=== PATIENT | female | born 1990 | race Caucasian/White ===

== ENCOUNTER 2019-09-08 14:21 | Observation (INO) | payer BC, SELFPAY ==
--- NOTE | 2019-09-08 14:21 | OBADM ---
This patient, Rand Hernandez, admitted to the OB room [facility] for observation. Patient/family oriented to hospital policies and general routines including ID bracelet, bed and alarms, visiting hours, pain management, procedures, bathroom and other care routines, personal items, smoking policy, room service/diet, and visiting hours. Patient/Family are encouraged to report perceived risks to care and to ask questions if they do not understand what they are told or what they should do.
[2019-09-08 15:03] VITALS: BP 120/63; PULSE 85
[2019-09-08 15:15] VITALS: BMI 28.5
[2019-09-08] MEDS: LACTATED RINGERS 1,000 ML 999 ML IV CONT (15:25)
[2019-09-08 15:56] LABS: Add Urine Microscopic? YES; Appearance Urine Clear (Clear); Bacteria Urine Trace /hpf; Bilirubin Urine Negative (Negative); Blood Urine Negative (Negative); Color Urine Yellow (Yellow); Glucose Urine UA Negative (Negative); Ketones Urine Negative (Negative); Leukocyte Esterase Ur Trace LEU/UL (NEGATIVE); Mucus Urine Moderate /lpf; Nitrate Urine Negative (Negative); Protein Urine 1+ mg/dL (Negative); Specific Grav Ur 1.018 (1.001-1.035); Squamous Epithelial Cell Urine Many /hpf (Few)
--- NOTE | 2019-09-10 09:13 | PM.OBTRLD ---
OB - Triage/Final Diagnosis Evaluation Laboratory results: Laboratory Tests 09/08/19 15:33 Urine Color Yellow Urine Appearance Clear Urine pH 6.0 Ur Specific [place] 1.018 Urine Protein 1+ H Urine Glucose (UA) Negative Urine Ketones Negative Ur Blood (Man) Negative Urine Nitrate Negative Urine Bilirubin Negative Urine Urobilinogen 2.0 H Ur Leukocyte Esterase Trace H Urine RBC 3-5 H Urine WBC 4-6 H Ur Squamous Epith Cells Many H Urine Bacteria Trace Urine Mucus Moderate H Final Diagnosis (1) Abdominal pain affecting : Code(s): O26.899 - Other specified related conditions, unspecified trimester; R10.9 - Unspecified abdominal pain Status: Acute Plan: Pt is a prev c/s x2 who presented with abdominal pain x3 days. She was found to be marv q3-5min, cervix was closed. FHTs were reassuring. Urine sample was reji in color and pt endorsed decreased fluid intake. After IV fluid hydration, contractions spaced out significantly and she denied any abdominal pain or discomfort.
== END 2019-09-08 17:55 | disposition home or self-care (01) ==
PROVIDERS: Admitting Provider Obstetrics & Gynecology; Visit Provider Obstetrics & Gynecology
DX: O26.893 Other specified pregnancy related conditions, third trimester (principal); R10.9 Unspecified abdominal pain; R82.998 Other abnormal findings in urine; O34.219 Maternal care for unspecified type scar from previous cesarean delivery; Z3A.35 35 weeks gestation of pregnancy
CPT/HCPCS: 81001; 87086; 96360; G0378; G0379; J7120

== ENCOUNTER 2020-02-25 13:55 | Emergency (ER) | payer BC, SELFPAY ==
--- NOTE | ~2020-02-25 | XR_ITS ---
EXAMINATION: XR hip BI 2V w AP pelvis DATE: 02/25/2020 15:06 INDICATION: Bilateral hip pain TECHNIQUE: AP view of the pelvis and two views of each hip were obtained. COMPARISON: None. FINDINGS: Bone alignment is normal. There is no fracture. The soft tissues are unremarkable. IMPRESSION: 1. No acute osseous abnormality. Reviewed, dictated and finalized at location A.
[2020-02-25 13:55] VITALS: BP 119/85; PULSE 92; RESP 17; TEMP 37; O2SAT 100
[2020-02-25 14:48] LABS: Add Urine Microscopic? YES; Appearance Urine Cloudy (Clear); Bacteria Urine Trace /hpf; Bilirubin Urine Negative (Negative); Blood Urine Negative (Negative); Color Urine Yellow (Yellow); Glucose Urine UA Negative (Negative); Ketones Urine Negative (Negative); Leukocyte Esterase Ur 1+ LEU/UL (Negative); Mucus Urine Moderate /lpf; Nitrate Urine Negative (Negative); Protein Urine 1+ mg/dL (Negative); Squamous Epithelial Cell Urine Many /hpf (Few)
[2020-02-25 14:53] LABS: Specific Grav Ur 1.034 (1.001-1.035)
[2020-02-25 15:02] LABS: Amphetamine Screen Urine Negative (Negative); Barbiturate Screen Urine Negative (Negative); Benzodiazepines Screen Urine Negative (Negative); Cannabinoid Screen Urine Positive (Negative); Cocaine Screen Urine Negative (Negative); Methadone Screen Urine Negative (Negative); Opiate Screen Urine Negative (Negative); Phencyclidine Screen Urine Negative (Negative)
[2020-02-25] MEDS: methylPREDNISolone SOD SUCC 125 MG VIAL 80 MG IM (15:28)
[2020-02-25] MEDS: ORPHENADRINE CITRATE 100 MG TABLET.ER PO (15:35)
--- NOTE | 2020-02-25 15:39 | ED.BACK ---
HPI - Back Pain/Injury General Chief Complaint: Back Pain/Injury Stated Complaint: HIP PAIN Time Seen by Provider: 02/25/20 14:07 Source: patient Mode of arrival: ambulatory Limitations: no limitations History of Present Illness HPI Narrative: Patient presents with chief complaint of pain to her left buttock that feels as if her hip is grinding when she walks. Patient reports there is some radiation down her left leg at times. Patient states that she does not think that she has sciatica because she feels that the the discomfort is in her hip. Patient states she does not have a primary care at this time. Patient states that her symptoms have progressed since having her son in September. Patient states she is currently being treated with Macrobid for urinary tract infection. Patient denies any direct trauma or injury. Patient denies fever, chills, nausea, vomiting, diarrhea or any other symptoms. Patient reports an allergy to aspirin. Related Data Allergies Allergy/AdvReac Type Severity Reaction Status Date / Time aspirin Allergy Mild ASTHMA Verified 02/25/20 14:01 ATTACKS Review of Systems Review of Systems: Narrative: CONSTITUTIONAL: Denies fever, chills, or sweats. EYES: Denies visual changes, redness, or discharge. ENT: Denies rhinorrhea, congestion, sore throat, or otalgia. CARDIOVASCULAR: Denies chest pain, palpitations, or edema. RESPIRATORY: Denies cough or dyspnea. GASTROINTESTINAL: Denies abdominal pain, nausea, vomiting, or diarrhea. GENITOURINARY: Denies dysuria or hematuria. SKIN: Denies rash or itching. MUSCULOSKELETAL: Reports left buttock and hip pain denies back pain or myalgia. NEUROLOGIC: Denies headache, numbness, dizziness, or weakness. PSYCHIATRIC: Denies anxiety or depression. [facility] Past Medical History Medical History (Updated 02/25/20 @ 15:45 by Terry Garrison PA-C) History of asthma Surgical History Surgical History (Updated 07/29/19 @ 11:41 by Gracie Singh PA-C) History of section Social History Social History (Updated 07/29/19 @ 11:41 by Gracie Singh PA-C) Smoking status: Current every day smoker Gender identity (if verbalized by the patient): Female Exam Narrative: Exam Narrative: GENERAL: Well-appearing, well-nourished, and in no acute distress. HEAD: Normocephalic, atraumatic. EYES: PERRLA and EOMI. ENT: Nares clear, no rhinorrhea or epistaxis. Mucous membranes moist. Oropharynx without tonsillar hypertrophy exudate or other lesions. Bilateral TMs pearly rodriguez nonbulging CHEST: Clear to auscultation. No respiratory distress. No wheezes rales or rhonchi HEART: Regular rate and rhythm. EXTREMITIES: Normal range of motion. No edema. BACK: No vertebral tenderness or loss of range of motion. Patient is able to ambulate. Tenderness with palpation to left gluteal muscle. Range of motion intact to left leg. Sensation intact to left leg. SKIN: Warm, dry, no rash. NEURO: No focal deficits. Alert and oriented x3. PSYCH: Normal mood and affect. Course Vital Signs Vital signs: Vital Signs Temperature 98.6 F 02/25/20 13:55 Pulse Rate 92 02/25/20 13:55 Respiratory Rate 17 02/25/20 13:55 Blood Pressure 119/85 02/25/20 13:55 Pulse Oximetry 100 02/25/20 13:55 Temperature 98.6 F 02/25/20 13:55 Pulse Rate 92 02/25/20 13:55 Respiratory Rate 17 02/25/20 13:55 Blood Pressure 119/85 02/25/20 13:55 Pulse Oximetry 100 02/25/20 13:55 MDM - Back Pain/Injury MDM Narrative Medical decision making narrative: Patient has been referred to Dr. Prabhakar primary care for further evaluation and management. Her x-rays are without findings. Due to patient's allergy to aspirin she will be given Medrol Dosepak and muscle relaxants to decrease her discomfort. Differential Diagnosis Differential diagnosis: Likely lumbar radiculopathy, sciatica, strain of lumbar region and thoracic back pain Lab Data Labs: Lab Results 02/25/20 02/25/20 Range
== END 2020-02-25 15:54 | disposition home or self-care (01) ==
PROVIDERS: Physician Assistant; Emergency Provider Emergency Medicine
DX: S76.012A Strain of muscle, fascia and tendon of left hip, initial encounter (principal); N30.00 Acute cystitis without hematuria; J45.909 Unspecified asthma, uncomplicated; F17.200 Nicotine dependence, unspecified, uncomplicated; X58.XXXA Exposure to other specified factors, initial encounter
CPT/HCPCS: 73521; 80307; 81001; 81025; 87086; 96372; 99283; A9270; J2930

== ENCOUNTER 2021-10-14 16:47 | Emergency (ER) | payer OTHER, SELFPAY ==
[2021-10-14 16:49] VITALS: BP 126/76; PULSE 83; RESP 15; TEMP 36.4; O2SAT 100
--- NOTE | 2021-10-14 17:02 | ED.WOUNDLAC ---
HPI - Wound/Laceration General Chief Complaint: Wound/Laceration Stated Complaint: laceration Time Seen by Provider: 10/14/21 16:55 History of Present Illness HPI narrative: 31-year-old female presents the emergency room status post mandolin injury. Patient states that she was cutting onions yesterday around 5 PM, and experienced lacerations to her fourth and fifth fingers of her right hand. Patient states that she is unable to get the bleeding to stop. States her tetanus is up-to-date. Denies taking any blood thinners. Related Data Home Medications Medication Instructions Recorded Confirmed No Home Medications 10/14/21 10/14/21 Allergies Allergy/AdvReac Type Severity Reaction Status Date / Time aspirin Allergy Mild ASTHMA Verified 10/14/21 16:57 ATTACKS Review of Systems Review of Systems: CONSTITUTIONAL: Denies fever, chills, or sweats. EYES: Denies visual changes, redness, or discharge. ENT: Denies rhinorrhea, congestion, sore throat, or otalgia. CARDIOVASCULAR: Denies chest pain, palpitations, or edema. RESPIRATORY: Denies cough or dyspnea. GASTROINTESTINAL: Denies abdominal pain, nausea, vomiting, or diarrhea. GENITOURINARY: Denies dysuria or hematuria. SKIN: Lacerations to the right fourth and fifth fingers MUSCULOSKELETAL: Denies back pain, joint pain, or myalgia. NEUROLOGIC: Denies headache, numbness, dizziness, or weakness. PSYCHIATRIC: Denies anxiety or depression. [facility] Past Medical History Medical History History of asthma Surgical History Surgical History History of section Social History Social History Smoking status: Current every day smoker Gender identity (if verbalized by the patient): Female Exam Narrative: GENERAL: Well-appearing, well-nourished, and in no acute distress. HEAD: Normocephalic, atraumatic. EYES: PERRLA and EOMI. ENT: Nares clear, no rhinorrhea or epistaxis. Mucous membranes moist. NECK: Supple. No adenopathy or masses. CHEST: Clear to auscultation. No respiratory distress. No wheezes rales or rhonchi HEART: Regular rate and rhythm. No murmur heard. Normal peripheral pulses. ABDOMEN: Soft, nontender, nondistended, normal active bowel sounds. EXTREMITIES: Normal range of motion. No edema. SKIN: Warm, dry, no rash. Skin avulsions noted to the palmar side of the fourth and fifth fingertips. Bleeding is not controlled NEURO: No focal deficits. Alert and oriented x3. PSYCH: Normal mood and affect. Course Course Emergency Course: Surgicel applied to the fingertips of the right fourth and fifth digits. Bulky dressing and Coban applied. Hemostasis was achieved with both fingers. Patient tolerated procedure well. Vital Signs Vital signs: Vital Signs Temperature 36.4 C 10/14/21 16:49 Pulse Rate 83 10/14/21 16:49 Respiratory Rate 15 10/14/21 16:49 Blood Pressure 126/76 10/14/21 16:49 Pulse Oximetry 100 10/14/21 16:49 Temperature 36.4 C 10/14/21 16:49 Pulse Rate 83 10/14/21 16:49 Respiratory Rate 15 10/14/21 16:49 Blood Pressure 126/76 10/14/21 16:49 Pulse Oximetry 100 10/14/21 16:49 Discharge Plan Discharge Clinical Impression: Laceration Patient Disposition: Home, Self-Care Condition: Stable Instructions: Antibiotic Form, Laceration (ED) Additional Instructions: Keep wound clean and dry. Surgicel and the bandages should fall off or be removed in 3 to 4 days. Take antibiotics as prescribed. Follow-up with PCP as needed. Prescriptions: New cephalexin 500 mg capsule 500 mg PO Q12H Qty: 14 RF: 0 No Action No Home Medications RF: 0 Follow-up/Referrals: PHYSICIAN,REHABILITATION TECHNICIAN [Primary Care Provider] - Time of Disposition: 17:17
[2021-10-14] MEDS: CELLULOSE OXIDIZED 2 x 14 INCH 1 PKT XX (17:09)
== END 2021-10-14 17:24 | disposition home or self-care (01) ==
PROVIDERS: Emergency Provider Nurse Practitioner Family
DX: S61.214A Laceration without foreign body of right ring finger without damage to nail, initial encounter (principal); S61.216A Laceration without foreign body of right little finger without damage to nail, initial encounter; J45.909 Unspecified asthma, uncomplicated; F17.200 Nicotine dependence, unspecified, uncomplicated; W27.4XXA Contact with kitchen utensil, initial encounter
CPT/HCPCS: 99283

== ENCOUNTER 2022-09-16 11:41 | Emergency (ER) | payer OTHER, SELFPAY ==
[2022-09-16 12:37] VITALS: BP 136/91; PULSE 83; RESP 16; TEMP 36.6; O2SAT 100
--- NOTE | 2022-09-16 13:00 | ED.URI ---
HPI - URI/Sore Throat General Chief Complaint: Upper Respiratory Infection Stated Complaint: sore throat Time Seen by Provider: 09/16/22 13:00 History of Present Illness HPI Narrative: 32-year-old female presented for complaint of sore throat cough since yesterday. Endorses mild nasal congestion and right ear pain today. She denies known sick contacts. She denies shortness of breath, wheezing, nausea, vomiting, diarrhea, fevers or chills. She is taking Zyrtec for symptoms. Related Data Allergies Allergy/AdvReac Type Severity Reaction Status Date / Time aspirin Allergy Mild ASTHMA Verified 09/16/22 12:31 ATTACKS Review of Systems Review of Systems: CONSTITUTIONAL: Denies body aches, fever, chills, or sweats. EYES: Denies visual changes, redness, or discharge. ENT: Denies rhinorrhea, sore throat, otalgia CARDIOVASCULAR: Denies chest pain, palpitations, or edema. RESPIRATORY: Denies dyspnea. GASTROINTESTINAL: Denies abdominal pain, nausea, vomiting, or diarrhea. SKIN: Denies rash, itching, or wounds. MUSCULOSKELETAL: Denies back pain, joint pain, or myalgia. NEUROLOGIC: Denies headache PMFSH Past Medical History Medical History History of asthma Surgical History Surgical History History of section Social History Social History Smoking status: Current every day smoker Gender identity (if verbalized by the patient): Female Exam Narrative: GENERAL: Ill-appearing, non toxic EYES: conjunctivae clear ENT: Mucous membranes moist. TM pearly rodriguez with normal light reflex bilaterally; no tragal tenderness. Oropharynx severely erythematous without lesions. Tonsils enlarged and without exudate. No drooling, no hoarseness, no trismus, uvula midline. No tripod positioning, hot potato voice, or soft palate swelling. NECK: Supple. No lymphadenopathy CHEST: Clear to auscultation, breath sounds equal. No respiratory distress, speaks in full sentences. HEART: Regular rate and rhythm. No murmur heard. SKIN: Warm, dry, no rash. NEURO: Alert and oriented x3. Course Course Emergency Course: Patient is aware of diagnosis, understands and agrees to treatment plan. Anticipatory guidance given. Patient agrees to follow-up as directed and is aware of reasons to seek care at the emergency department. Portions of this record may have been created with voice recognition software Level of Care: Express Care Visit Vital Signs Vital signs: Vital Signs Temperature 97.9 F 09/16/22 12:37 Pulse Rate 83 09/16/22 12:37 Respiratory Rate 16 09/16/22 12:37 Blood Pressure 136/91 H 09/16/22 12:37 Pulse Oximetry 100 09/16/22 12:37 Oxygen Delivery Room Air 09/16/22 12:37 Temperature 97.9 F 09/16/22 12:37 Pulse Rate 83 09/16/22 12:37 Respiratory Rate 16 09/16/22 12:37 Blood Pressure 136/91 H 09/16/22 12:37 Pulse Oximetry 100 09/16/22 12:37 Oxygen Delivery Room Air 09/16/22 12:37 MDM - URI/Sore Throat MDM Narrative Medical decision making narrative: Strep negative, will treat based on PE. Advised supportive measures and signs/symptoms to go to the ER. Pt is appropriate for outpt treatment and f/u. Differential Diagnosis Differential diagnosis: Likely upper respiratory infection, sinusitis, viral infection and pharyngitis Discharge Plan Discharge Clinical Impression: Pharyngitis Patient Disposition: Home, Self-Care Condition: Stable Instructions: Antibiotic Form, Strep Throat (ED) Additional Instructions: - Take the antibiotic as directed. Fever and sore throat typically resolve within one to three days. Most patients can return to work after 12 to 24 hours of antibiotic therapy, provided you are fever free and otherwise well. -Eat and drink things that are easy to swallow, like soft foods, c
== END 2022-09-16 13:13 | disposition home or self-care (01) ==
PROVIDERS: Emergency Provider Nurse Practitioner Family
DX: J02.9 Acute pharyngitis, unspecified (principal); J45.909 Unspecified asthma, uncomplicated
CPT/HCPCS: 87081; 87880; 99213; G0463